=== PATIENT | male | born 1965 | race Caucasian/White ===

== ENCOUNTER 2016-09-10 11:51 | Emergency (ER) | payer MEDICAID, OTHER ==
[~2016-09-10] VITALS: Ht 175.3 cm; Wt 72.7 kg
[~2016-09-10 11:51] MED LIST: AMLO2.5T2 PO; DIAZ2TAB3 PO; DICY10CA3 PO; DIVA250T PO; DIVA250T4 PO; GLIP10TA13 PO; GLIP5TAB10 PO; HYDR-3138 PO; INSU100I18 SC; INSU100I28 SQ; INSU100I28 SQ-INSULIN; INSU100I29 SQ-INSULIN; INSU100V13 SQ-INSULIN; LIPA1CAP4 PO; LIPA1CAP54 PO; LISI-167 PO; MAGN250T8 PO; MAGN400T7 PO; METF10002 PO; METF500T4 PO; METO10TA2 PO; METO10TA82 PO; NICO1PAT10 TD; NICO1PAT4 TD; NICO1PAT5 TD; OMEP-110 PO; OMEP20TA62 PO; ONDA4TAB7 PO; OXYC5CAP4 PO; PANT40TA3 PO; PROM25SU34 RC; SULF1TAB3 PO; TRAM50TA2 PO
[2016-09-10] MEDS ORDERED: ONDANSETRON 2MG/ML, 2ML IVPush STA (12:22)
[2016-09-10] MEDS ORDERED: SODIUM CHLORIDE 0.9% 1,000ML IVBOLUS ONE (12:30)
[2016-09-10] MEDS ORDERED: ONDANSETRON 2MG/ML, 2ML ONE ×2 (12:36→14:17)
[2016-09-10] MEDS ORDERED: MORPHINE SULFATE 4 MG/ML, 1ML ONE ×2 (12:36→14:06)
[2016-09-10] MEDS: MORPHINE SULFATE 4 MG/ML, 1ML IVPush PRN ×2 (12:41→14:12)
[2016-09-10 13:17] LABS: ASPARTATE AMINO TRANSFERASE 15 U/L (15-37); BLOOD UREA NITROGEN 17 mg/dL (7-18)
[2016-09-10] MEDS ORDERED: GLIP10TA20 PO (13:30)
[2016-09-10] MEDS ORDERED: MAALOX/HYOSCYAMINE/LIDOCAINE 45 ML BOTTLE PO STA (14:44)
[2016-09-10] MEDS ORDERED: MAALOX/HYOSCYAMINE/LIDOCAINE 45 ML BOTTLE ONE (14:44)
[2016-09-10] MEDS ORDERED: ONDANSETRON 2MG/ML, 2ML IVPush ONE (15:00)
[2016-09-10] MEDS ORDERED: METOCLOPRAMIDE 5 MG/ML, 2ML IVPush STA (15:09)
[2016-09-10] MEDS ORDERED: METOCLOPRAMIDE 5 MG/ML, 2ML ONE (15:16)
[2016-09-10 15:40] VITALS: BP 125/84
== END 2016-09-10 15:54 | disposition home or self-care (01) ==
LOC: ED 15:30
DX: E11.65 Type 2 diabetes mellitus with hyperglycemia (principal); I10 Essential (primary) hypertension; F17.210 Nicotine dependence, cigarettes, uncomplicated
CPT/HCPCS: 36415; 74020; 76705; 80053; 82150; 83690; 85025; 96361; 96374; 96375; 96376; 99285; J2405; J2765; J7030

== ENCOUNTER 2017-01-19 14:33 | Emergency (ER) | payer MEDICAID ==
[~2017-01-19] VITALS: Ht 172.7 cm; Wt 70.0 kg
[~2017-01-19 14:33] MED LIST changes: +GLIP-164 PO; -HYDR-3138 PO; +HYDR-3237 PO; +NICO-485 TD; +NICO-486 TD; +NICO-487 TD; -NICO1PAT10 TD; -NICO1PAT4 TD; -NICO1PAT5 TD; +OXYC5CAP2 PO; -OXYC5CAP4 PO; +SULF-169 PO; -SULF1TAB3 PO
[2017-01-19] MEDS ORDERED: ONDANSETRON 2MG/ML, 2ML ONE (14:55)
[2017-01-19] MEDS ORDERED: INSU100I37 SQ (14:59)
[2017-01-19] MEDS ORDERED: PLEASE ENTER HEIGHT AND WEIGHT MC SCH (15:00)
[2017-01-19] MEDS ORDERED: SODIUM CHLORIDE FLUSH 10ML SYR IVF ONE (15:00)
[2017-01-19] MEDS ORDERED: SODIUM CHLORIDE 0.9% 1,000ML IVBOLUS ONE (15:00)
[2017-01-19] MEDS ORDERED: ONDANSETRON 2MG/ML, 2ML IVPush ONE (15:00)
[2017-01-19 15:11] LABS: HEMATOCRIT 45.9 % (39.2-51.8); HEMOGLOBIN 15.6 g/dL (13.7-18.0); WHITE BLOOD COUNT 9.2 x10^3/uL (3.4-10)
[2017-01-19 15:20] LABS: ASPARTATE AMINO TRANSFERASE 13 U/L (15-37); BLOOD UREA NITROGEN 16 mg/dL (7-18)
[2017-01-19 17:13] VITALS: BP 147/78
== END 2017-01-19 17:16 | disposition home or self-care (01) ==
LOC: ED 16:13
DX: R10.84 Generalized abdominal pain (principal); R11.2 Nausea with vomiting, unspecified; I10 Essential (primary) hypertension; F17.210 Nicotine dependence, cigarettes, uncomplicated; Z90.49 Acquired absence of other specified parts of digestive tract; G43.909 Migraine, unspecified, not intractable, without status migrainosus
CPT/HCPCS: 36415; 74020; 80053; 80307; 83690; 85025; 85610; 96361; 96374; 99285; J2405; J7030; G0479

== ENCOUNTER 2017-01-19 18:05 | Inpatient (IN) | payer MEDICAID ==
[~2017-01-19] VITALS: Ht 172.7 cm; Wt 67.4 kg
[~2017-01-19 18:05] MED LIST changes: +INSU100I37 SQ
[2017-01-19] MEDS ORDERED: ZIPRASIDONE 20 MG INJ IM ONE ×2 (18:30→18:31)
[2017-01-19] MEDS ORDERED: SODIUM CHLORIDE FLUSH 10ML SYR IVF ONE (18:30)
[2017-01-19] MEDS ORDERED: SODIUM CHLORIDE 0.9% 1,000ML IVBOLUS ONE (19:30)
[2017-01-19] MEDS ORDERED: INSULIN REGULAR 100 UNITS/ML, 3ML VIAL SQ-INSULIN ONE (19:30)
[2017-01-19] MEDS ORDERED: INSULIN REGULAR 100 UNITS/ML, 3ML VIAL ONE (19:33)
[2017-01-19] MEDS ORDERED: METOCLOPRAMIDE 5 MG/ML, 2ML IVPush ONE (22:30)
[2017-01-19] MEDS ORDERED: GLUCAGON 1 MG IM PRN (23:00)
[2017-01-19] MEDS ORDERED: DEXTROSE 50%, 50ML SYRINGE IVPush PRN (23:00)
[2017-01-19] MEDS ORDERED: ONDANSETRON 2MG/ML, 2ML IVPush PRN (23:00)
[2017-01-19] MEDS ORDERED: DEXTROSE 4 GM TAB.CHEW PO PRN (23:00)
[2017-01-19] MEDS: METOCLOPRAMIDE 5 MG/ML, 2ML IVPush SCH (23:00)
[2017-01-19] MEDS ORDERED: METOCLOPRAMIDE 5 MG/ML, 2ML ONE (23:28)
[2017-01-19] MEDS ORDERED: ENOXAPARIN 40 MG/0.4 ML ONE (23:28)
[2017-01-19] MEDS: SODIUM CHLORIDE 0.9% 1,000 ML IV SCH (23:32)
[2017-01-19] MEDS: ENOXAPARIN 40 MG/0.4 ML SQ SCH (23:33)
[2017-01-20] MEDS ORDERED: ONDANSETRON 2MG/ML, 2ML ONE (00:29)
[2017-01-20] MEDS ORDERED: MORPHINE SULFATE 4 MG/ML, 1ML ONE (00:29)
[2017-01-20] MEDS: morphine SULFATE 10 MG/ML, 1ML IVPush PRN (00:41)
[2017-01-20 02:13] VITALS: BP 163/96
[2017-01-20] MEDS: METOCLOPRAMIDE 5 MG/ML, 2ML IVPush SCH ×3 (05:50→17:50)
[2017-01-20] MEDS: SODIUM CHLORIDE 0.9% 1,000 ML IV SCH ×3 (05:51→20:27)
[2017-01-20 07:33] VITALS: BP 137/81
[2017-01-20] MEDS: INSULIN ASPART 100 UNITS/ML, PEN SQ-INSULIN SCH ×4 (10:23→22:39)
[2017-01-20] MEDS: SODIUM CHLORIDE FLUSH 10ML SYR IVF SCH ×2 (10:23→20:27)
[2017-01-20 15:58] VITALS: BP 128/83
[2017-01-20] MEDS: ONDANSETRON 2MG/ML, 2ML IVPush PRN (16:38)
[2017-01-20 19:57] VITALS: BP 130/81
[2017-01-20] MEDS: ENOXAPARIN 40 MG/0.4 ML SQ SCH (22:39)
[2017-01-21 00:07] VITALS: BP 133/87
[2017-01-21] MEDS: METOCLOPRAMIDE 5 MG/ML, 2ML IVPush SCH ×4 (00:08→20:06)
[2017-01-21] MEDS: ONDANSETRON 2MG/ML, 2ML IVPush PRN ×4 (01:02→21:57)
[2017-01-21] MEDS: morphine SULFATE 10 MG/ML, 1ML IVPush PRN ×4 (01:40→20:07)
[2017-01-21] MEDS: SODIUM CHLORIDE 0.9% 1,000 ML IV SCH ×3 (02:39→17:27)
[2017-01-21 06:11] LABS: BLOOD UREA NITROGEN 14 mg/dL (7-18)
[2017-01-21 09:30] VITALS: BP 130/88
[2017-01-21] MEDS: INSULIN ASPART 100 UNITS/ML, PEN SQ-INSULIN SCH ×4 (10:23→20:09)
[2017-01-21] MEDS: SODIUM CHLORIDE FLUSH 10ML SYR IVF SCH ×2 (10:25→20:06)
[2017-01-21 13:59] VITALS: BP 126/88
[2017-01-21] MEDS: ENOXAPARIN 40 MG/0.4 ML SQ SCH (20:09)
[2017-01-21 20:37] VITALS: BP 185/99
[2017-01-22 01:16] VITALS: BP 178/96
[2017-01-22] MEDS: METOCLOPRAMIDE 5 MG/ML, 2ML IVPush SCH ×4 (01:19→19:47)
[2017-01-22] MEDS: morphine SULFATE 10 MG/ML, 1ML IVPush PRN ×3 (01:19→16:46)
[2017-01-22] MEDS: SODIUM CHLORIDE 0.9% 1,000 ML IV SCH (01:19)
[2017-01-22] MEDS ORDERED: hydrALAzine 20 MG/ML, 1ML IV PRN (02:30)
[2017-01-22] MEDS: ONDANSETRON 2MG/ML, 2ML IVPush PRN ×2 (04:56→16:50)
[2017-01-22 06:44] LABS: BLOOD UREA NITROGEN 18 mg/dL (7-18)
[2017-01-22 08:30] VITALS: BP 148/84
[2017-01-22] MEDS ORDERED: POTASSIUM CHLORIDE 40 MEQ in D5%-0.9% NACL 1,000 ML IV SCH (08:30)
[2017-01-22] MEDS ORDERED: MAGNESIUM SULFATE PMX 2GM/50ML 50 ML IV ONE (08:30)
[2017-01-22] MEDS: INSULIN ASPART 100 UNITS/ML, PEN SQ-INSULIN SCH ×4 (09:06→20:43)
[2017-01-22] MEDS: SODIUM CHLORIDE FLUSH 10ML SYR IVF SCH ×2 (09:07→20:44)
[2017-01-22] MEDS ORDERED: INSULIN ASPART 100 UNITS/ML, PEN SQ-INSULIN SCH (11:00)
[2017-01-22 13:59] VITALS: BP 141/94
[2017-01-22] MEDS: POTASSIUM CHLORIDE 40 MEQ in D5%-0.9% NACL 1,000 ML IV SCH (19:48)
[2017-01-22 20:38] VITALS: BP 152/97
[2017-01-22] MEDS: ENOXAPARIN 40 MG/0.4 ML SQ SCH (20:44)
[2017-01-23] MEDS: morphine SULFATE 10 MG/ML, 1ML IVPush PRN ×2 (01:10→21:08)
[2017-01-23] MEDS: METOCLOPRAMIDE 5 MG/ML, 2ML IVPush SCH ×4 (01:12→19:34)
[2017-01-23 01:40] VITALS: BP 147/88
[2017-01-23] MEDS: POTASSIUM CHLORIDE 40 MEQ in D5%-0.9% NACL 1,000 ML IV SCH ×2 (05:08→17:08)
[2017-01-23 06:23] LABS: BLOOD UREA NITROGEN 11 mg/dL (7-18)
[2017-01-23 07:00] VITALS: BP 159/97
[2017-01-23] MEDS: SODIUM CHLORIDE FLUSH 10ML SYR IVF SCH ×2 (10:00→21:08)
[2017-01-23] MEDS: INSULIN ASPART 100 UNITS/ML, PEN SQ-INSULIN SCH ×4 (10:00→21:10)
[2017-01-23 13:11] VITALS: BP 146/98
[2017-01-23 19:14] VITALS: BP 126/88
[2017-01-23] MEDS: ENOXAPARIN 40 MG/0.4 ML SQ SCH (21:10)
[2017-01-24] MEDS: METOCLOPRAMIDE 5 MG/ML, 2ML IVPush SCH ×2 (01:46→06:47)
[2017-01-24 03:41] VITALS: BP 144/92
[2017-01-24] MEDS: POTASSIUM CHLORIDE 40 MEQ in D5%-0.9% NACL 1,000 ML IV SCH (03:44)
[2017-01-24] MEDS ORDERED: PNEUMOCOCCAL 23 VACCINE IM-VACC ONE (04:00)
[2017-01-24] MEDS ORDERED: FLU VACC QS2017-18 (36MOS+) UP/PF 0.5 ML IM-VACC ONE (04:00)
[2017-01-24 07:33] VITALS: BP 132/82
[2017-01-24] MEDS: INSULIN ASPART 100 UNITS/ML, PEN SQ-INSULIN SCH ×2 (09:18→11:51)
[2017-01-24] MEDS: SODIUM CHLORIDE FLUSH 10ML SYR IVF SCH (09:18)
[2017-01-24] MEDS ORDERED: ONDA4TAB10 PO (10:57)
== END 2017-01-24 13:15 | disposition home or self-care (01) | DRG 74 ==
LOC: ED 18:31 → EDIP 22:18 → 5SO 01-20 01:37 → 3NE 01-21 17:43
PROVIDERS: ADMIT Hospitalist; ATTEND Hospitalist
DX: E11.43 Type 2 diabetes mellitus with diabetic autonomic (poly)neuropathy (principal); E11.65 Type 2 diabetes mellitus with hyperglycemia; I10 Essential (primary) hypertension; E87.1 Hypo-osmolality and hyponatremia; E87.6 Hypokalemia; F17.210 Nicotine dependence, cigarettes, uncomplicated; G40.909 Epilepsy, unspecified, not intractable, without status epilepticus; K31.84 Gastroparesis; M51.36 Other intervertebral disc degeneration, lumbar region; N28.1 Cyst of kidney, acquired; Z79.4 Long term (current) use of insulin; Z90.49 Acquired absence of other specified parts of digestive tract
CPT/HCPCS: 36415; 74150; 80048; 82962; 83036; 83605; 83690; 83735; 84439; 84443; 84481; 96372; 96374; 96375; J1650; J1815; J2405; J3480; J3486; J7042; J2270; J2765; J3475; J7030

== ENCOUNTER 2017-04-11 14:51 | Inpatient (IN) | payer MEDICAID ==
[~2017-04-11] VITALS: Ht 172.7 cm; Wt 66.1 kg
[~2017-04-11 14:51] MED LIST changes: +ONDA4TAB10 PO
[2017-04-11] MEDS ORDERED: METOCLOPRAMIDE 5 MG/ML, 2ML IVPush ONE (15:00)
[2017-04-11] MEDS ORDERED: SODIUM CHLORIDE FLUSH 10ML SYR IVF ONE (15:00)
[2017-04-11] MEDS ORDERED: DIPHENHYDRAMINE 50 MG/ML, 1ML IVPush ONE (15:00)
[2017-04-11] MEDS ORDERED: SODIUM CHLORIDE 0.9% 1,000ML IVBOLUS ONE (15:00)
[2017-04-11] MEDS ORDERED: METOCLOPRAMIDE 5 MG/ML, 2ML ONE (15:05)
[2017-04-11] MEDS ORDERED: DIPHENHYDRAMINE 50 MG/ML, 1ML ONE (15:05)
[2017-04-11 15:24] LABS: HEMATOCRIT 46.1 % (39.2-51.8); HEMOGLOBIN 15.8 g/dL (13.7-18.0); WHITE BLOOD COUNT 7.4 x10^3/uL (3.4-10)
[2017-04-11 15:34] LABS: BLOOD UREA NITROGEN 19 mg/dL (7-18)
[2017-04-11 15:38] LABS: ASPARTATE AMINO TRANSFERASE 18 U/L (15-37)
[2017-04-11 16:23] LABS: PATH.CAST-FLAG NOT PRESENT; SPERM-FLAG NOT PRESENT; SRC-FLAG NOT PRESENT; XTAL-FLAG NOT PRESENT; YLC-FLAG NOT PRESENT
[2017-04-11] MEDS ORDERED: OMNIPAQUE 350 MG/ML, 100ML BOTTLE ONE (16:32)
[2017-04-11] MEDS ORDERED: METF500T4 PO (17:29)
[2017-04-11] MEDS ORDERED: BISACODYL 10 MG SUPP PR PRN (19:00)
[2017-04-11] MEDS ORDERED: DEXTROSE 4 GM TAB.CHEW PO PRN (19:00)
[2017-04-11] MEDS ORDERED: DIPHENHYDRAMINE 50 MG/ML, 1ML IVPush PRN (19:00)
[2017-04-11] MEDS ORDERED: KETOROLAC 30 MG/1 ML IM PRN (19:00)
[2017-04-11] MEDS ORDERED: GLUCAGON 1 MG IM PRN (19:00)
[2017-04-11] MEDS ORDERED: DEXTROSE 50%, 50ML SYRINGE IVPush PRN (19:00)
[2017-04-11] MEDS ORDERED: METOCLOPRAMIDE 5 MG/ML, 2ML IVPush PRN (19:00)
[2017-04-11] MEDS ORDERED: ENOXAPARIN 40 MG/0.4 ML ONE (19:44)
[2017-04-11] MEDS: ENOXAPARIN 40 MG/0.4 ML SQ SCH (19:51)
[2017-04-11] MEDS: SODIUM CHLORIDE 0.9% 1,000 ML IV SCH (19:51)
[2017-04-11 22:00] VITALS: BP 118/88
[2017-04-11] MEDS: SODIUM CHLORIDE FLUSH 10ML SYR IVF SCH (22:53)
[2017-04-11] MEDS: INSULIN ASPART 100 UNITS/ML, PEN SQ-INSULIN SCH (22:54)
[2017-04-12 04:00] VITALS: BP 123/86
[2017-04-12] MEDS: SODIUM CHLORIDE 0.9% 1,000 ML IV SCH ×2 (04:40→13:33)
[2017-04-12 05:10] LABS: HEMATOCRIT 43.7 % (39.2-51.8); HEMOGLOBIN 14.9 g/dL (13.7-18.0); WHITE BLOOD COUNT 6.2 x10^3/uL (3.4-10)
[2017-04-12 05:30] LABS: BLOOD UREA NITROGEN 17 mg/dL (7-18)
[2017-04-12 06:57] VITALS: BP 114/81
[2017-04-12] MEDS: INSULIN ASPART 100 UNITS/ML, PEN SQ-INSULIN SCH ×4 (07:00→20:28)
[2017-04-12] MEDS: SODIUM CHLORIDE FLUSH 10ML SYR IVF SCH ×2 (08:11→20:28)
[2017-04-12 12:10] VITALS: BP 140/94
[2017-04-12] MEDS: CIPROFLOXACIN/PMX 400MG/200ML 200 ML IV SCH (13:34)
[2017-04-12] MEDS: ONDANSETRON 2MG/ML, 2ML IVPush PRN (13:38)
[2017-04-12] MEDS: METRONIDAZOLE PMX 500MG/100ML 100 ML IV SCH ×2 (15:29→20:27)
[2017-04-12 20:25] VITALS: BP 122/79
[2017-04-12] MEDS: ENOXAPARIN 40 MG/0.4 ML SQ SCH (20:27)
[2017-04-13] MEDS: CIPROFLOXACIN/PMX 400MG/200ML 200 ML IV SCH ×2 (00:18→13:16)
[2017-04-13] MEDS: SODIUM CHLORIDE 0.9% 1,000 ML IV SCH ×2 (01:45→09:00)
[2017-04-13 01:46] VITALS: BP 123/83
[2017-04-13 04:48] LABS: HEMATOCRIT 40.4 % (39.2-51.8); HEMOGLOBIN 13.8 g/dL (13.7-18.0); WHITE BLOOD COUNT 5.3 x10^3/uL (3.4-10)
[2017-04-13 04:58] LABS: BLOOD UREA NITROGEN 7 mg/dL (7-18)
[2017-04-13] MEDS: METRONIDAZOLE PMX 500MG/100ML 100 ML IV SCH ×2 (05:34→13:00)
[2017-04-13] MEDS: ONDANSETRON 2MG/ML, 2ML IVPush PRN (06:24)
[2017-04-13 07:06] VITALS: BP 141/93
[2017-04-13] MEDS: SODIUM CHLORIDE FLUSH 10ML SYR IVF SCH (09:00)
[2017-04-13] MEDS: INSULIN ASPART 100 UNITS/ML, PEN SQ-INSULIN SCH ×2 (11:00→11:16)
[2017-04-13 13:21] VITALS: BP 148/89
[2017-04-13] MEDS ORDERED: METR500T PO (14:36)
[2017-04-13] MEDS ORDERED: ASPI-650 PO (14:36)
[2017-04-13] MEDS ORDERED: CIPR500T87 PO (14:36)
== END 2017-04-13 17:06 | disposition home or self-care (01) | DRG 392 ==
LOC: ED 16:08 → EDIP 17:56 → 4WST 21:46 → 4NOR 04-13 00:26
PROVIDERS: ADMIT Hospitalist; ATTEND Hospitalist
DX: A09 Infectious gastroenteritis and colitis, unspecified (principal); K31.84 Gastroparesis; E11.43 Type 2 diabetes mellitus with diabetic autonomic (poly)neuropathy; F17.210 Nicotine dependence, cigarettes, uncomplicated; G40.909 Epilepsy, unspecified, not intractable, without status epilepticus; I10 Essential (primary) hypertension; Z90.49 Acquired absence of other specified parts of digestive tract
CPT/HCPCS: 36415; 74177; 80048; 80053; 81001; 82962; 83690; 85025; 96361; 96374; 96375; J0744; J1650; J1815; J2405; Q9967; J1200; J2765; J7030

== ENCOUNTER 2017-04-19 10:25 | Emergency (ER) | payer MEDICAID ==
[~2017-04-19] VITALS: Ht 172.7 cm; Wt 72.7 kg
[~2017-04-19 10:25] MED LIST changes: +ASPI-650 PO; +CIPR500T87 PO; +METR500T PO
[2017-04-19 10:28] VITALS: BP 186/139
[2017-04-19] MEDS ORDERED: HYDROmorphone 2 MG/ML, 1ML ONE (11:21)
[2017-04-19] MEDS ORDERED: ONDANSETRON 2MG/ML, 2ML ONE (11:22)
[2017-04-19] MEDS ORDERED: HYDROmorphone 1 MG/ML, 1ML IVPush PRN (11:30)
[2017-04-19] MEDS ORDERED: SODIUM CHLORIDE FLUSH 10ML SYR IVF ONE (11:30)
[2017-04-19] MEDS ORDERED: SODIUM CHLORIDE 0.9% 1,000ML IVBOLUS ONE (11:30)
[2017-04-19] MEDS ORDERED: ONDANSETRON 2MG/ML, 2ML IVPush ONE (11:30)
[2017-04-19 11:54] LABS: ALANINE AMINOTRANSFERASE 69 U/L (12-78); ALBUMIN 3.5 g/dL (3.4-5.0); ANION GAP 8 mmol/L (5-15); CALCIUM 8.5 mg/dL (8.5-10.1); CHLORIDE 109 mmol/L (98-107); CREATININE 0.88 mg/dL (0.7-1.3)
[2017-04-19 11:56] LABS: ALKALINE PHOSPHATASE 82 U/L (45-117); BILIRUBIN,TOTAL 0.5 mg/dL (0.2-1.0); TOTAL PROTEIN 6.7 g/dL (6.4-8.2)
[2017-04-19 11:58] LABS: MEAN CORPUSCULAR HEMOGLOBIN 31.2 pg (27.5-34.5); MEAN CORPUSCULAR HGB CONC 33.9 g/dL (33.2-36.2); MEAN CORPUSCULAR VOLUME 91.9 fL (81-97); MEAN PLATELET VOLUME 9.1 fL (7.4-10.4); PLATELET COUNT 210 x10^3/uL (130-400); RED BLOOD COUNT 4.68 x10^6/uL (4.38-5.82)
[2017-04-19 11:59] LABS: ACETONE, SERUM Small (20mg/dL) mg/dL (Negative)
[2017-04-19] MEDS ORDERED: MAALOX/HYOSCYAMINE/LIDOCAINE 45 ML BTL ONE (12:16)
[2017-04-19 12:18] LABS: BASOPHILS # (AUTO) 0.03 x10^3/uL (0-0.1); BASOPHILS % (AUTO) 0 % (0-1); EOSINOPHILS # (AUTO) 0.13 x10^3/uL (0-0.4); EOSINOPHILS % (AUTO) 1 % (1-7); LYMPHOCYTES # (AUTO) 0.78 x10^3/uL (1-3.4); LYMPHOCYTES % (AUTO) 8 % (22-44); MD SCAN; MONOCYTES # (AUTO) 0.53 x10^3/uL (0.2-0.8); MONOCYTES % (AUTO) 6 % (2-9); NEUTROPHILS # (AUTO) 8.18 x10^3/uL (1.8-6.8); NEUTROPHILS % (AUTO) 85 % (42-75)
[2017-04-19] MEDS ORDERED: MAALOX/HYOSCYAMINE/LIDOCAINE 45 ML BTL PO ONE (12:30)
== END 2017-04-19 12:29 | disposition home or self-care (01) ==
LOC: ED 11:08
DX: R10.84 Generalized abdominal pain (principal); R19.7 Diarrhea, unspecified; E11.9 Type 2 diabetes mellitus without complications; I10 Essential (primary) hypertension; Z90.89 Acquired absence of other organs; Z90.49 Acquired absence of other specified parts of digestive tract
CPT/HCPCS: 36415; 80053; 82010; 83690; 83735; 85025; 96374; 96375; 99284; J1170; J2405; J7030

== ENCOUNTER 2017-04-20 18:03 | Inpatient (IN) | payer MEDICAID ==
[~2017-04-20] VITALS: Ht 172.7 cm; Wt 70.8 kg
[2017-04-20] MEDS ORDERED: HYDROmorphone 2 MG/ML, 1ML ONE ×2 (18:33→22:41)
[2017-04-20] MEDS: HYDROmorphone 1 MG/ML, 1ML IVPush PRN ×2 (18:37→22:44)
[2017-04-20 18:49] LABS: BASOPHILS # (AUTO) 0.02 x10^3/uL (0-0.1); BASOPHILS % (AUTO) 0 % (0-1); EOSINOPHILS # (AUTO) 0.04 x10^3/uL (0-0.4); EOSINOPHILS % (AUTO) 0 % (1-7); LYMPHOCYTES # (AUTO) 1.51 x10^3/uL (1-3.4); LYMPHOCYTES % (AUTO) 16 % (22-44); MD NO; MEAN CORPUSCULAR HEMOGLOBIN 31.5 pg (27.5-34.5); MEAN CORPUSCULAR VOLUME 92.9 fL (81-97); MEAN PLATELET VOLUME 8.9 fL (7.4-10.4); MONOCYTES # (AUTO) 0.35 x10^3/uL (0.2-0.8); MONOCYTES % (AUTO) 4 % (2-9); NEUTROPHILS % (AUTO) 79 % (42-75); PLATELET COUNT 240 x10^3/uL (130-400); RED BLOOD COUNT 5.09 x10^6/uL (4.38-5.82); RED CELL DISTRIBUTION WIDTH 13.9 % (9.4-14.8)
[2017-04-20 18:58] LABS: INTERNATIONAL NORMALIZED RATIO 0.97 (0.93-1.1)
[2017-04-20] MEDS ORDERED: SODIUM CHLORIDE 0.9% 1,000ML IVBOLUS ONE ×2 (19:00→20:00)
[2017-04-20] MEDS ORDERED: SODIUM CHLORIDE FLUSH 10ML SYR IVF ONE (19:00)
[2017-04-20 19:01] LABS: ALANINE AMINOTRANSFERASE 67 U/L (12-78); ALBUMIN 4.1 g/dL (3.4-5.0); ANION GAP 11 mmol/L (5-15); CALCIUM 9.3 mg/dL (8.5-10.1); CHLORIDE 103 mmol/L (98-107); CREATININE 0.95 mg/dL (0.7-1.3)
[2017-04-20 19:03] LABS: ALKALINE PHOSPHATASE 99 U/L (45-117); BILIRUBIN,TOTAL 0.6 mg/dL (0.2-1.0); TOTAL PROTEIN 7.7 g/dL (6.4-8.2)
[2017-04-20] MEDS ORDERED: OMNIPAQUE 350 MG/ML, 100ML BOTTLE ONE (19:21)
[2017-04-20 21:10] LABS: TROPONIN I < 0.015 ng/mL (0.000-0.045)
[2017-04-20 21:39] LABS: MICROSCOPIC NOT IND
[2017-04-20 21:43] LABS: AMPHETAMINE SCREEN, URINE Negative (Negative); BARBITURATE SCREEN, URINE Negative (Negative); BENZODIAZEPINE SCREEN, URINE Negative (Negative); CANNABINOID SCREEN, URINE Positive (Negative); COCAINE SCREEN, URINE Negative (Negative); METHADONE SCREEN, URINE Negative (Negative); OPIATE SCREEN, URINE Positive (Negative)
[2017-04-20] MEDS ORDERED: BISACODYL 10 MG SUPP PR PRN (23:30)
[2017-04-20] MEDS: metFORMIN 500 MG TABLET PO SCH (23:30)
[2017-04-20] MEDS ORDERED: POLYETHYLENE GLYCOL 17 GM PACKET PO PRN (23:30)
[2017-04-20] MEDS ORDERED: ACETAMINOPHEN 325 MG TABLET PO PRN (23:30)
[2017-04-21 00:15] VITALS: BP 122/86
[2017-04-21] MEDS: HEPARIN 5,000 UNITS/ML, 1ML SQ SCH ×3 (01:01→17:29)
[2017-04-21] MEDS: NICOTINE 14MG/24 HR PATCH.TD24 TD SCH (01:01)
[2017-04-21] MEDS: SODIUM CHLORIDE 0.9% 1,000 ML IV SCH ×3 (01:02→19:51)
[2017-04-21] MEDS: HYDROmorphone 2 MG/ML, 1ML IVPush PRN ×2 (03:31→09:49)
[2017-04-21] MEDS: ONDANSETRON 2MG/ML, 2ML IVPush PRN ×3 (05:25→23:37)
[2017-04-21 05:50] LABS: BASOPHILS # (AUTO) 0.04 x10^3/uL (0-0.1); BASOPHILS % (AUTO) 0 % (0-1); EOSINOPHILS # (AUTO) 0.08 x10^3/uL (0-0.4); EOSINOPHILS % (AUTO) 1 % (1-7); LYMPHOCYTES # (AUTO) 1.63 x10^3/uL (1-3.4); LYMPHOCYTES % (AUTO) 16 % (22-44); MD NO; MEAN CORPUSCULAR HEMOGLOBIN 31.5 pg (27.5-34.5); MEAN CORPUSCULAR HGB CONC 34.4 g/dL (33.2-36.2); MEAN CORPUSCULAR VOLUME 91.7 fL (81-97); MONOCYTES # (AUTO) 0.64 x10^3/uL (0.2-0.8); MONOCYTES % (AUTO) 6 % (2-9); NEUTROPHILS # (AUTO) 7.73 x10^3/uL (1.8-6.8); NEUTROPHILS % (AUTO) 76 % (42-75); PLATELET COUNT 195 x10^3/uL (130-400); RED BLOOD COUNT 4.41 x10^6/uL (4.38-5.82); RED CELL DISTRIBUTION WIDTH 13.8 % (9.4-14.8)
[2017-04-21 05:58] LABS: CHLORIDE 106 mmol/L (98-107)
[2017-04-21] MEDS ORDERED: FLU VACC QS2017-18 (36MOS+) UP/PF 0.5 ML IM-VACC ONE (06:00)
[2017-04-21 06:36] LABS: ALANINE AMINOTRANSFERASE 56 U/L (12-78); ALBUMIN 3.2 g/dL (3.4-5.0); ALKALINE PHOSPHATASE 79 U/L (45-117); ANION GAP 10 mmol/L (5-15); BILIRUBIN,TOTAL 0.7 mg/dL (0.2-1.0); CALCIUM 8.2 mg/dL (8.5-10.1); CREATININE 0.75 mg/dL (0.7-1.3); TOTAL PROTEIN 6.1 g/dL (6.4-8.2)
[2017-04-21] MEDS: metFORMIN 500 MG TABLET PO SCH ×2 (09:00→17:32)
[2017-04-21] MEDS: SENNA/DOCUSATE TABLET PO SCH (09:00)
[2017-04-21] MEDS: ASPIRIN 325 MG TABLET EC PO SCH (09:50)
[2017-04-21] MEDS ORDERED: POTASSIUM CHLORIDE 40 MEQ in SODIUM CHLORIDE 0.9% 500 ML IV ONE (13:00)
[2017-04-21 14:30] VITALS: BP 157/95
[2017-04-21] MEDS: HYDROcodone/APAP 5/325 TABLET PO PRN ×2 (15:04→23:37)
[2017-04-21] MEDS: PANTOPROZOLE 40MG TABLET PO SCH (15:04)
[2017-04-21 19:44] VITALS: BP 139/91
[2017-04-22 01:12] VITALS: BP 131/87
[2017-04-22] MEDS: NICOTINE 14MG/24 HR PATCH.TD24 TD SCH (01:27)
[2017-04-22] MEDS: HEPARIN 5,000 UNITS/ML, 1ML SQ SCH ×2 (01:27→09:00)
[2017-04-22] MEDS: PANTOPROZOLE 40MG TABLET PO SCH (01:27)
[2017-04-22] MEDS: HYDROcodone/APAP 5/325 TABLET PO PRN ×2 (03:39→10:01)
[2017-04-22 05:16] LABS: BASOPHILS # (AUTO) 0.04 x10^3/uL (0-0.1); BASOPHILS % (AUTO) 1 % (0-1); EOSINOPHILS # (AUTO) 0.27 x10^3/uL (0-0.4); EOSINOPHILS % (AUTO) 5 % (1-7); LYMPHOCYTES # (AUTO) 1.56 x10^3/uL (1-3.4); LYMPHOCYTES % (AUTO) 26 % (22-44); MD NO; MEAN CORPUSCULAR HEMOGLOBIN 31.6 pg (27.5-34.5); MEAN CORPUSCULAR HGB CONC 33.5 g/dL (33.2-36.2); MEAN CORPUSCULAR VOLUME 94.3 fL (81-97); MEAN PLATELET VOLUME 9.1 fL (7.4-10.4); MONOCYTES # (AUTO) 0.53 x10^3/uL (0.2-0.8); MONOCYTES % (AUTO) 9 % (2-9); NEUTROPHILS # (AUTO) 3.58 x10^3/uL (1.8-6.8); NEUTROPHILS % (AUTO) 60 % (42-75); PLATELET COUNT 191 x10^3/uL (130-400); RED BLOOD COUNT 4.24 x10^6/uL (4.38-5.82); RED CELL DISTRIBUTION WIDTH 13.4 % (9.4-14.8)
[2017-04-22 05:25] LABS: ALBUMIN 2.9 g/dL (3.4-5.0); ANION GAP 7 mmol/L (5-15); CALCIUM 8.1 mg/dL (8.5-10.1); CHLORIDE 108 mmol/L (98-107)
[2017-04-22 05:30] LABS: ALANINE AMINOTRANSFERASE 56 U/L (12-78); ALKALINE PHOSPHATASE 73 U/L (45-117); BILIRUBIN,TOTAL 0.9 mg/dL (0.2-1.0); TOTAL PROTEIN 5.6 g/dL (6.4-8.2)
[2017-04-22] MEDS: SODIUM CHLORIDE 0.9% 1,000 ML IV SCH (05:43)
[2017-04-22 07:00] VITALS: BP 135/86
[2017-04-22] MEDS ORDERED: NICO-486 TD (08:19)
[2017-04-22] MEDS ORDERED: OMEP-110 PO (08:19)
[2017-04-22] MEDS ORDERED: ACET325T14 PO (08:19)
[2017-04-22] MEDS ORDERED: GLIM1TAB PO (08:19)
[2017-04-22] MEDS: metFORMIN 500 MG TABLET PO SCH (08:20)
[2017-04-22] MEDS ORDERED: SIMV40TA PO (08:21)
[2017-04-22] MEDS ORDERED: METF500T4 PO (08:28)
[2017-04-22] MEDS: SENNA/DOCUSATE TABLET PO SCH (09:00)
[2017-04-22] MEDS: ASPIRIN 325 MG TABLET EC PO SCH (09:00)
[2017-04-22] MEDS ORDERED: ONDANSETRON ODT 4 MG ONE (09:58)
[2017-04-22] MEDS ORDERED: ONDA4TAB7 PO (10:00)
[2017-04-22] MEDS: ONDANSETRON 2MG/ML, 2ML IVPush PRN (10:02)
== END 2017-04-22 11:40 | disposition home or self-care (01) | DRG 392 ==
LOC: ED 18:58 → EDIP 23:12 → 4NOR 23:48 → DCLOUNGE 04-22 11:29
PROVIDERS: ADMIT Surgery; ATTEND Internal Medicine
DX: K29.70 Gastritis, unspecified, without bleeding (principal); K31.84 Gastroparesis; E11.43 Type 2 diabetes mellitus with diabetic autonomic (poly)neuropathy; E87.2 Acidosis; E11.65 Type 2 diabetes mellitus with hyperglycemia; E78.5 Hyperlipidemia, unspecified; F12.90 Cannabis use, unspecified, uncomplicated; F17.210 Nicotine dependence, cigarettes, uncomplicated; G40.909 Epilepsy, unspecified, not intractable, without status epilepticus; I10 Essential (primary) hypertension; K52.9 Noninfective gastroenteritis and colitis, unspecified; M51.36 Other intervertebral disc degeneration, lumbar region; Z79.82 Long term (current) use of aspirin; Z79.84 Long term (current) use of oral hypoglycemic drugs; Z79.899 Other long term (current) drug therapy; Z90.49 Acquired absence of other specified parts of digestive tract; Z23 Encounter for immunization
CPT/HCPCS: 36415; 74174; 80053; 80307; 81003; 83036; 83605; 83690; 83735; 84100; 84484; 85025; 85610; 85730; 90686; 93005; 96360; J1170; J1644; J2405; J3480; Q9967; G0479; J7030; J7040

== ENCOUNTER 2017-04-24 13:52 | Emergency (ER) | payer MEDICAID ==
[~2017-04-24] VITALS: Ht 172.7 cm; Wt 70.0 kg
[~2017-04-24 13:52] MED LIST changes: +ACET325T14 PO; +GLIM1TAB PO; +SIMV40TA PO
[2017-04-24] MEDS ORDERED: SODIUM CHLORIDE 0.9% 1,000 ML IV ONE (14:14)
[2017-04-24] MEDS ORDERED: HYDROmorphone 2 MG/ML, 1ML ONE (14:26)
[2017-04-24] MEDS ORDERED: ONDANSETRON 2MG/ML, 2ML ONE (14:26)
[2017-04-24] MEDS ORDERED: SODIUM CHLORIDE FLUSH 10ML SYR IVF ONE (14:30)
[2017-04-24] MEDS ORDERED: ONDANSETRON 2MG/ML, 2ML IVPush ONE (14:30)
[2017-04-24] MEDS ORDERED: SODIUM CHLORIDE 0.9% 1,000ML IVBOLUS ONE (14:30)
[2017-04-24] MEDS ORDERED: HYDROmorphone 1 MG/ML, 1ML IVPush PRN (14:30)
[2017-04-24 15:13] LABS: BASOPHILS # (AUTO) 0.02 x10^3/uL (0-0.1); BASOPHILS % (AUTO) 0 % (0-1); EOSINOPHILS # (AUTO) 0.11 x10^3/uL (0-0.4); EOSINOPHILS % (AUTO) 2 % (1-7); LYMPHOCYTES # (AUTO) 0.96 x10^3/uL (1-3.4); LYMPHOCYTES % (AUTO) 12 % (22-44); MD NO; MEAN CORPUSCULAR HEMOGLOBIN 31.8 pg (27.5-34.5); MEAN CORPUSCULAR VOLUME 93.5 fL (81-97); MEAN PLATELET VOLUME 8.5 fL (7.4-10.4); MONOCYTES # (AUTO) 0.43 x10^3/uL (0.2-0.8); MONOCYTES % (AUTO) 6 % (2-9); NEUTROPHILS % (AUTO) 81 % (42-75); PLATELET COUNT 202 x10^3/uL (130-400); RED BLOOD COUNT 4.37 x10^6/uL (4.38-5.82)
[2017-04-24 15:21] LABS: ALBUMIN 3.5 g/dL (3.4-5.0); ANION GAP 8 mmol/L (5-15); CALCIUM 8.4 mg/dL (8.5-10.1); CHLORIDE 107 mmol/L (98-107)
[2017-04-24 15:25] LABS: ALANINE AMINOTRANSFERASE 63 U/L (12-78); ALKALINE PHOSPHATASE 74 U/L (45-117); BILIRUBIN,TOTAL 0.6 mg/dL (0.2-1.0); CREATININE 0.83 mg/dL (0.7-1.3); TOTAL PROTEIN 6.6 g/dL (6.4-8.2)
[2017-04-24 15:47] LABS: MICROSCOPIC NOT IND
[2017-04-24 15:50] LABS: CULTURE INDICATED? NO
[2017-04-24 16:32] VITALS: BP 129/87
[2017-04-25] MEDS ORDERED: HYOS0.1282 PO (12:54)
== END 2017-04-24 16:42 | disposition home or self-care (01) ==
LOC: ED 14:15
DX: R10.84 Generalized abdominal pain (principal); G89.29 Other chronic pain; I10 Essential (primary) hypertension; E11.9 Type 2 diabetes mellitus without complications; E78.5 Hyperlipidemia, unspecified; G40.909 Epilepsy, unspecified, not intractable, without status epilepticus
CPT/HCPCS: 36415; 74022; 80053; 81003; 83605; 83690; 85025; 96361; 96374; 96375; 99285; J1170; J2405; J7030

== ENCOUNTER 2017-04-25 12:33 | Inpatient (IN) | payer MEDICAID ==
[~2017-04-25] VITALS: Ht 172.7 cm; Wt 68.3 kg
[2017-04-25] MEDS ORDERED: HYOS0.1282 PO (12:54)
[2017-04-25] MEDS ORDERED: FAMOTIDINE 20 MG/2 ML ONE (13:09)
[2017-04-25] MEDS ORDERED: ONDANSETRON 2MG/ML, 2ML ONE (13:09)
[2017-04-25] MEDS ORDERED: HYDROmorphone 2 MG/ML, 1ML ONE (13:09)
[2017-04-25] MEDS: HYDROmorphone 1 MG/ML, 1ML IVPush PRN ×2 (13:10→17:35)
[2017-04-25] MEDS ORDERED: ONDANSETRON 2MG/ML, 2ML IVPush ONE (13:30)
[2017-04-25] MEDS ORDERED: LORazepam 2 MG/ML, 1ML IVPush ONE (13:30)
[2017-04-25] MEDS ORDERED: LORazepam 2 MG/ML, 1ML ONE (13:51)
[2017-04-25 14:25] LABS: MD NO
[2017-04-25 14:33] LABS: CALCIUM 9.2 mg/dL (8.5-10.1); CHLORIDE 107 mmol/L (98-107); CREATININE 0.82 mg/dL (0.7-1.3)
[2017-04-25 14:34] LABS: ALANINE AMINOTRANSFERASE 85 U/L (12-78); ALBUMIN 3.9 g/dL (3.4-5.0)
[2017-04-25 14:38] LABS: ALKALINE PHOSPHATASE 81 U/L (45-117); ANION GAP 12 mmol/L (5-15); BILIRUBIN,TOTAL 0.6 mg/dL (0.2-1.0); TOTAL PROTEIN 7.2 g/dL (6.4-8.2)
[2017-04-25 14:42] LABS: BASOPHILS # (AUTO) 0.03 x10^3/uL (0-0.1); BASOPHILS % (AUTO) 0 % (0-1); EOSINOPHILS # (AUTO) 0.06 x10^3/uL (0-0.4); EOSINOPHILS % (AUTO) 1 % (1-7); LYMPHOCYTES # (AUTO) 1.19 x10^3/uL (1-3.4); LYMPHOCYTES % (AUTO) 11 % (22-44); MEAN CORPUSCULAR HEMOGLOBIN 31.3 pg (27.5-34.5); MEAN CORPUSCULAR HGB CONC 33.7 g/dL (33.2-36.2); MEAN CORPUSCULAR VOLUME 92.7 fL (81-97); MEAN PLATELET VOLUME 8.8 fL (7.4-10.4); MONOCYTES % (AUTO) 5 % (2-9); NEUTROPHILS % (AUTO) 83 % (42-75); PLATELET COUNT 202 x10^3/uL (130-400); RED BLOOD COUNT 4.75 x10^6/uL (4.38-5.82); RED CELL DISTRIBUTION WIDTH 14.2 % (9.4-14.8)
[2017-04-25] MEDS ORDERED: OMNIPAQUE 350 MG/ML, 100ML BOTTLE ONE (14:51)
[2017-04-25] MEDS ORDERED: NICOTINE 14MG/24 HR PATCH.TD24 ONE (16:28)
[2017-04-25] MEDS ORDERED: ENOXAPARIN 40 MG/0.4 ML ONE (16:28)
[2017-04-25] MEDS ORDERED: DEXTROSE 50%, 50ML SYRINGE IVPush PRN (16:30)
[2017-04-25] MEDS ORDERED: DEXTROSE 4 GM TAB.CHEW PO PRN (16:30)
[2017-04-25] MEDS ORDERED: GLUCAGON 1 MG IM PRN (16:30)
[2017-04-25] MEDS ORDERED: DOCUSATE 100 MG CAPSULE PO PRN (16:30)
[2017-04-25] MEDS: ENOXAPARIN 40 MG/0.4 ML SQ SCH (16:31)
[2017-04-25] MEDS: NICOTINE 14MG/24 HR PATCH.TD24 TD SCH (16:31)
[2017-04-25] MEDS: D5%-0.45NACL+KCL 20MEQ 1,000 ML IV SCH ×2 (17:16→23:50)
[2017-04-25] MEDS: HYDROmorphone 2 MG/ML, 1ML IVPush PRN ×2 (17:34→20:49)
[2017-04-25 18:51] VITALS: BP 124/86
[2017-04-25] MEDS: INSULIN ASPART 100 UNITS/ML, PEN SQ-INSULIN SCH (20:49)
[2017-04-25] MEDS: ONDANSETRON 2MG/ML, 2ML IVPush PRN (20:49)
[2017-04-25] MEDS: SODIUM CHLORIDE FLUSH 10ML SYR IVF SCH (20:49)
[2017-04-25] MEDS: PANTOPRAZOLE 40 MG IV IVPush SCH (20:49)
[2017-04-26] MEDS ORDERED: PROMETHAZINE 25 MG/ML, 1ML IM PRN (00:30)
[2017-04-26 01:16] VITALS: BP 119/60
[2017-04-26 05:39] LABS: BASOPHILS # (AUTO) 0.05 x10^3/uL (0-0.1); BASOPHILS % (AUTO) 1 % (0-1); EOSINOPHILS # (AUTO) 0.28 x10^3/uL (0-0.4); EOSINOPHILS % (AUTO) 3 % (1-7); LYMPHOCYTES # (AUTO) 1.67 x10^3/uL (1-3.4); LYMPHOCYTES % (AUTO) 18 % (22-44); MD NO; MEAN CORPUSCULAR HEMOGLOBIN 31.5 pg (27.5-34.5); MEAN CORPUSCULAR HGB CONC 34.2 g/dL (33.2-36.2); MEAN CORPUSCULAR VOLUME 92.2 fL (81-97); MEAN PLATELET VOLUME 8.7 fL (7.4-10.4); MONOCYTES # (AUTO) 0.64 x10^3/uL (0.2-0.8); MONOCYTES % (AUTO) 7 % (2-9); NEUTROPHILS # (AUTO) 6.87 x10^3/uL (1.8-6.8); NEUTROPHILS % (AUTO) 72 % (42-75); PLATELET COUNT 193 x10^3/uL (130-400); RED BLOOD COUNT 4.32 x10^6/uL (4.38-5.82); RED CELL DISTRIBUTION WIDTH 13.8 % (9.4-14.8)
[2017-04-26 05:42] LABS: CHLORIDE 107 mmol/L (98-107)
[2017-04-26 05:56] LABS: ALANINE AMINOTRANSFERASE 77 U/L (12-78); ALBUMIN 3.1 g/dL (3.4-5.0); ALKALINE PHOSPHATASE 67 U/L (45-117); ANION GAP 7 mmol/L (5-15); BILIRUBIN,TOTAL 0.6 mg/dL (0.2-1.0); CALCIUM 8.2 mg/dL (8.5-10.1); CHOL/HDL RATIO 1.9; CHOLESTEROL, TOTAL 126 mg/dL (140-239); CREATININE 0.82 mg/dL (0.7-1.3); HDL CHOL % 53 % (26-37); HDL CHOLESTEROL (DIRECT) 67 mg/dL (40-60); LDL CHOLESTEROL,CALCULATED 44 mg/dL (54-169); LDL/HDL RATIO 0.7 (0.5-3.0); TOTAL PROTEIN 5.9 g/dL (6.4-8.2); TRIGLYCERIDES 77 mg/dL (50-200); VLDL CHOLESTEROL 15 mg/dL (0-25)
[2017-04-26] MEDS: HYDROmorphone 2 MG/ML, 1ML IVPush PRN (06:20)
[2017-04-26 08:30] VITALS: BP 140/94
[2017-04-26] MEDS: PANTOPRAZOLE 40 MG IV IVPush SCH ×2 (08:49→22:03)
[2017-04-26] MEDS: D5%-0.45NACL+KCL 20MEQ 1,000 ML IV SCH ×3 (08:49→22:02)
[2017-04-26] MEDS: SODIUM CHLORIDE FLUSH 10ML SYR IVF SCH ×2 (08:50→22:03)
[2017-04-26] MEDS: ONDANSETRON 2MG/ML, 2ML IVPush PRN (09:19)
[2017-04-26] MEDS: INSULIN ASPART 100 UNITS/ML, PEN SQ-INSULIN SCH ×4 (09:19→22:03)
[2017-04-26] MEDS ORDERED: MAALOX/HYOSCYAMINE/LIDOCAINE 45 ML BTL PO ONE (09:30)
[2017-04-26] MEDS: SUCRALFATE 1 GM/10 ML UDC PO SCH ×3 (11:13→22:03)
[2017-04-26 14:45] VITALS: BP 133/86
[2017-04-26] MEDS: ENOXAPARIN 40 MG/0.4 ML SQ SCH (17:24)
[2017-04-26] MEDS: NICOTINE 14MG/24 HR PATCH.TD24 TD SCH (17:24)
[2017-04-26 21:44] VITALS: BP 130/83
[2017-04-27 03:18] VITALS: BP 126/86
[2017-04-27] MEDS: D5%-0.45NACL+KCL 20MEQ 1,000 ML IV SCH (04:40)
[2017-04-27 05:02] LABS: ANION GAP 8 mmol/L (5-15); BASOPHILS # (AUTO) 0.04 x10^3/uL (0-0.1); BASOPHILS % (AUTO) 1 % (0-1); CALCIUM 7.9 mg/dL (8.5-10.1); CHLORIDE 105 mmol/L (98-107); EOSINOPHILS # (AUTO) 0.27 x10^3/uL (0-0.4); EOSINOPHILS % (AUTO) 7 % (1-7); LYMPHOCYTES # (AUTO) 1.45 x10^3/uL (1-3.4); LYMPHOCYTES % (AUTO) 38 % (22-44); MD NO; MEAN CORPUSCULAR HEMOGLOBIN 31.5 pg (27.5-34.5); MEAN CORPUSCULAR HGB CONC 33.9 g/dL (33.2-36.2); MEAN CORPUSCULAR VOLUME 93.1 fL (81-97); MONOCYTES # (AUTO) 0.37 x10^3/uL (0.2-0.8); MONOCYTES % (AUTO) 10 % (2-9); NEUTROPHILS # (AUTO) 1.74 x10^3/uL (1.8-6.8); NEUTROPHILS % (AUTO) 45 % (42-75); PLATELET COUNT 197 x10^3/uL (130-400); RED BLOOD COUNT 4.33 x10^6/uL (4.38-5.82); RED CELL DISTRIBUTION WIDTH 13.4 % (9.4-14.8)
[2017-04-27 05:05] LABS: ALANINE AMINOTRANSFERASE 69 U/L (12-78); ALKALINE PHOSPHATASE 68 U/L (45-117); BILIRUBIN,TOTAL 0.6 mg/dL (0.2-1.0); CREATININE 1.09 mg/dL (0.7-1.3); TOTAL PROTEIN 5.8 g/dL (6.4-8.2)
[2017-04-27] MEDS: SUCRALFATE 1 GM/10 ML UDC PO SCH ×2 (07:54→11:49)
[2017-04-27] MEDS: PANTOPRAZOLE 40 MG IV IVPush SCH (08:16)
[2017-04-27] MEDS: INSULIN ASPART 100 UNITS/ML, PEN SQ-INSULIN SCH ×2 (08:16→11:50)
[2017-04-27 08:30] VITALS: BP 131/98
[2017-04-27] MEDS ORDERED: SUCR1ORA5 PO (08:31)
[2017-04-27] MEDS: SODIUM CHLORIDE FLUSH 10ML SYR IVF SCH (11:49)
[2017-04-27 14:18] VITALS: BP 134/88
== END 2017-04-27 14:44 | disposition home or self-care (01) | DRG 440 ==
LOC: ED 14:48 → EDIP 15:25 → 3NE 17:57
PROVIDERS: ADMIT Family Medicine; ATTEND Family Medicine
DX: K85.90 Acute pancreatitis without necrosis or infection, unspecified (principal); K31.84 Gastroparesis; E11.43 Type 2 diabetes mellitus with diabetic autonomic (poly)neuropathy; E78.5 Hyperlipidemia, unspecified; E87.6 Hypokalemia; I10 Essential (primary) hypertension; K21.9 Gastro-esophageal reflux disease without esophagitis; E86.0 Dehydration; F17.210 Nicotine dependence, cigarettes, uncomplicated; M51.36 Other intervertebral disc degeneration, lumbar region; G40.909 Epilepsy, unspecified, not intractable, without status epilepticus; K59.00 Constipation, unspecified; Z90.49 Acquired absence of other specified parts of digestive tract
CPT/HCPCS: 36415; 74021; 74177; 80053; 80061; 82787; 82962; 83605; 83690; 83735; 84100; 85025; 87040; 96374; 96375; J1170; J1650; J1815; J2405; J2550; Q9967; C9113; J2060; J3480